=== PATIENT | female | born 1970 | race Caucasian/White ===

== ENCOUNTER → 2017-06-03 | Day surgery (SDC) | payer BC ==
[~2017-06-03] MED LIST: ASPI325T PO; BUPIVACAINE HCL PF 0.75% 30 ML VIAL ONE; EPINEPHrine HCL (1:1000) 30 MG/30 ML VIAL ONE; KETOROLAC TROMETHAMINE 30 MG/ML (IVP) VIAL ONE; LACTATED RINGER'S 1000 ML INJ 1,000 ML ONE; LIDOCAINE 1.5%/EPINEPHrine 1:200,000 PF SOLN 30 ML AMP ONE; MIDAZOLAM HCL 5 MG/5 ML VIAL ONE; ONDANSETRON HCL 4 MG/2 ML VIAL IV PUSH ONE; PROPOFOL 200 MG/20 ML AMP IV ONE; TAB-TAB PO; XARE15TA PO; XARE20TA PO; ceFAZolin INJ 1,000 MG VIAL ONE
--- NOTE | 2017-06-04 08:29 | MP ---
cc: ALEKSANDR HERNANDEZ DATE OF SURGERY: June 03, 2017 PREOPERATIVE DIAGNOSIS Right shoulder rotator cuff tear with impingement with calcific tendonitis. POSTOPERATIVE DIAGNOSIS Right shoulder rotator cuff tear with impingement with calcific tendonitis. SURGEON Dr. Aleksandr Hernandez SEEING EYE DOG TEACHER MELISSA Morin SEEING EYE DOG TEACHER MELISSA Domingo The surgical procedure was assisted by my Advanced Registered Nurse Practitioner. My CABLE ASSEMBLER AND SWAGER presence was necessary throughout this case for the manipulation and positioning of the surgical extremity. My CABLE ASSEMBLER AND SWAGER was assisting me throughout the duration of this procedure. The skill set of an Advance Registered Nurse Practitioner was medically necessary to complete this procedure. During the surgical case, the surgical coordinator was working at the back table and the Advance Registered Nurse Practitioner was directly assisting me. PROCEDURE Right shoulder arthroscopic rotator cuff repair with subacromial decompression and partial acromioplasty. ESTIMATED BLOOD LOSS Minimal. ANESTHESIA Regional and general. PROCEDURE The patient had regional anesthesia administered. She was placed into lateral decubitus position, after general anesthesia was administered, she received intravenous Ancef. She was placed into 12 pounds of in-line traction. The right upper extremity was prepped and draped in usual sterile fashion. We started with standard posterior portal for the diagnostic arthroscopy. We identified glenohumeral joint showing no significant chondromalacia. The biceps tendon was in very good condition. The superior labrum anteriorly and posteriorly was in good condition. There was no loose bodies in the axillary pouch. We identified some partial tearing of the superior aspect of the subscapularis that did not require repair. We identified a 90% thickness supraspinatus tendon tear involving most of the supraspinatus tendon. There was some retraction noted from underneath the cuff. We used spinal needle localization to help determine a lateral portal. We then placed the arthroscope in the subacromial space. There was quite a bit of bursitis. We used our lateral portal to debride the bursitis. There was impingement of the coracoacromial ligament which was resected using an underwater Bovie. We found very small spur which was resected with a forward shaver. We then turned our attention back to the rotator cuff and found the area where the remaining 10% thickness fibers were intact for the supraspinatus tendon. We debrided through this and then easily identified the remaining portion of the torn mildly retracted rotator cuff tear. We debrided the undersurface of the rotator cuff and then we debrided the insertion site of the greater tuberosity using a shaver. We then spent quite a bit of time looking for the calcium deposit on the lateral aspect of the shoulder. Per the x-rays and the MRI this deposit should have been just lateral to the supraspinatus tendon. We probed this and we could not find any significant exophytic mass such as this deposit that treated any unusual anatomy on the lateral aspect of the humerus. We searched by the lateral aspect of the infraspinatus as well. We did elevate the arm and did not see any impingement in this area and therefore we turned our attention back to the rotator cuff tear, repaired this by using two biocomposite swivel locks. The most medial one had a fiber tape associated with it. The very top of the anchor had some mild fragmentation, these fragments were removed. We did later look into the joint to make sure there were no interarticular fragments. The vast majority of the anchor was extremely stable as the bone was very firm. We used each of the fiber tapes to create a horizontal mattress type of stitch and then in the very center of this stitch we placed a fiber link. These three sutures were then taken and placed down laterally into another Arthrex biocomposite suture anchor which had excellent purchase. Overall this gave an excellent repair to the tear, laying down very nicely. We placed the arthroscope into the glenohumeral space again, again confirmed there was no loose bodies and then we were also able to inspect the repair which showed that the repair was now anatomic of the supraspinatus tendon, biceps tendon was intact. The arthroscopic portals were closed with 2-0 Vicryl and 3-0 Nylon. The patient was placed in a sling and swath. Postoperative plan is standard rotator cuff repair protocol. MD VANESSA Rehman/MINA /4:24 PM /8:12 AM
== END | disposition home or self-care (01) ==
LOC: ESDC 12:47
PROVIDERS: ATTEND Orthopaedic Surgery
DX: M75.101 Unspecified rotator cuff tear or rupture of right shoulder, not specified as traumatic (principal); M75.41 Impingement syndrome of right shoulder; M75.31 Calcific tendinitis of right shoulder
CPT/HCPCS: 01630; 01991; 29826; 29827; 64417; C1713; J0171; J0690; J1885; J2250; J2405; J7120

== ENCOUNTER 2017-06-19 06:36 | Emergency (ER) | payer BC ==
[~2017-06-19] VITALS: Ht 160 cm; Wt 114.6 kg
[~2017-06-19 06:36] MED LIST changes: -ASPI325T PO; -BUPIVACAINE HCL PF 0.75% 30 ML VIAL ONE; -EPINEPHrine HCL (1:1000) 30 MG/30 ML VIAL ONE; -KETOROLAC TROMETHAMINE 30 MG/ML (IVP) VIAL ONE; -LACTATED RINGER'S 1000 ML INJ 1,000 ML ONE; -LIDOCAINE 1.5%/EPINEPHrine 1:200,000 PF SOLN 30 ML AMP ONE; -MIDAZOLAM HCL 5 MG/5 ML VIAL ONE; -ONDANSETRON HCL 4 MG/2 ML VIAL IV PUSH ONE; -PROPOFOL 200 MG/20 ML AMP IV ONE; -XARE15TA PO; -XARE20TA PO; -ceFAZolin INJ 1,000 MG VIAL ONE
[2017-06-19 06:43] VITALS: BP 158/85; PULSE 91; RESP 18; TEMP 98.3; O2SAT 98
[2017-06-19] MEDS ORDERED: ASPI325T PO (07:01)
--- NOTE | 2017-06-19 07:09 | PD ---
HPI Chief Complaint: Pain: Acute or Chronic Time Seen by Provider: 06:50 Travel History International Travel<30 days: No Contact w/Intl Traveler<30days: No Traveled to known affect area: No History of Present Illness HPI 46-year-old female complains of right leg pain. Patient states that the pain started yesterday. Patient status post right shoulder rotator cuff surgery 2 weeks ago. Patient has been taking aspirin 325 mg daily. Patient states the pain is sharp pain started at the posterior aspect of the right thigh with radiation down the right leg. Patient denies any fever chills. Patient states that she has mild shortness of breath the past 2 days. Patient denies any chest pain. Patient denies abdominal pain. Patient has history of DVT and PE in the past. Patient was on -control pills at that time. Patient's not on control pills now. Patient denies any recent injury. PFSH Past Medical History Arthritis: Yes (OSTEO CYRUS KNEES) Deep Vein Thrombosis: Yes ?: Not Past Surgical History Section: Yes (X2) Social History Alcohol Use: No Tobacco Use: No Substance Use: No Allergies-Medications (Allergen,Severity, Reaction): Coded Allergies: No Known Allergies (Verified , 06/19/17) Reported Meds & Prescriptions Reported Meds & Active Scripts Active Reported Aspirin 325 Mg Tab 325 Mg PO DAILY Multivitamin (Multivitamins) 1 Tab Tab 1 Tab PO DAILY Review of Systems General / Constitutional: No: Fever Eyes: No: Visual changes HENT: No: Headaches Cardiovascular: No: Chest Pain or Discomfort Respiratory: No: Shortness of Breath Gastrointestinal: No: Abdominal Pain Genitourinary: No: Dysuria Musculoskeletal: Positive: Pain Skin: No Rash Neurologic: No: Weakness Psychiatric: No: Depression Endocrine: No: Polydipsia Hematologic/Lymphatic: No: Easy Bruising Physical Exam Narrative GENERAL: Well-nourished, well-developed patient. SKIN: Focused skin assessment warm/dry. HEAD: Normocephalic. EYES: No scleral icterus. No injection or drainage. NECK: Supple, trachea midline. No JVD or lymphadenopathy. CARDIOVASCULAR: Regular rate and rhythm without murmurs, gallops, or rubs. RESPIRATORY: Breath sounds equal bilaterally. No accessory muscle use. GASTROINTESTINAL: Abdomen soft, non-tender, nondistended. MUSCULOSKELETAL: No cyanosis, or edema. BACK: Nontender without obvious deformity. No CVA tenderness. Patient has mild tenderness on palpation posterior aspect of right thigh. No redness no heat noted. Full range of motion low extremity. Data Data Last Documented VS Vital Signs Date Time Temp Pulse Resp B/P (MAP) Pulse Ox O2 Delivery O2 Flow Rate FiO2 06/19/17 08:38 70 16 152/88 (109) 97 Room Air 06/19/17 06:43 98.3 Orders Orders Complete Blood Count With Diff (06/19/17 07:02) Basic Metabolic Panel (Bmp) (06/19/17 07:02) Prothrombin Time / Inr (Pt) (06/19/17 07:02) Act Partial Throm Time (Ptt) (06/19/17 07:02) Iv Access Insert/Monitor (06/19/17 07:02) Us Leg Venous Doppler (06/19/17 07:02) Labs Laboratory Tests Test 06/19/17 07:15 White Blood Count 6.7 TH/MM3 Red Blood Count 4.61 MIL/MM3 Hemoglobin 13.0 GM/DL Hematocrit 38.8 % Mean Corpuscular Volume 84.2 FL Mean Corpuscular Hemoglobin 28.2 PG Mean Corpuscular Hemoglobin Concent 33.6 % Red Cell Distribution Width 12.7 % Platelet Count 245 TH/MM3 Mean Platelet Volume 7.6 FL Neutrophils (%) (Auto) 66.7 % Lymphocytes (%) (Auto) 23.3 % Monocytes (%) (Auto) 6.3 % Eosinophils (%) (Auto) 3.3 % Basophils (%) (Auto) 0.4 % Neutrophils # (Auto) 4.6 TH/MM3 Lymphocytes # (Auto) 1.5 TH/MM3 Monocytes # (Auto) 0.4 TH/MM3 Eosinophils # (Auto) 0.2 TH/MM3 Basophils # (Auto) 0.0 TH/MM3 CBC Comment DIFF FINAL Differential Comment Prothrombin Time 10.2 SEC Prothromb Time International Ratio 0.9 RATIO Activated Partial Thromboplast Time 25.3 SEC Blood Urea Nitrogen 8 MG/DL Creatinine 0.61 MG/DL Random Glucose 99 MG/DL Calcium Level 8.5 MG/DL Sodium Level 138 MEQ/L Potassium Level 3.8 MEQ/L Chloride Level 104 MEQ/L Carbon Dioxide Level 25.5 MEQ/L Anion Gap 9 MEQ/L Estimat Glomerular Filtration Rate 105 ML/MIN MDM Medical Decision Making Medical Screen Exam Complete: Yes Emergency Medical Condition: Yes Interpretation(s) 7:49 AM. CBC within normal limit. BMP within normal limit. 9:02 AM. Last Impressions Lower Extremity Ultrasound 06/19/17 0702 Signed Impressions: Service Date/Time: May 07:48 - CONCLUSION: Right calf DVT involving the posterior tibial vein Twin Malave MD Differential Diagnosis Differential diagnosis including musculoskeletal, DVT, PE. Narrative Course 46-year-old female with right leg pain. History of DVT and PE in the past. Patient status post right shoulder surgery 2 weeks ago. Xarelto 15 mg by mouth given. Diagnosis Primary Impression: DVT (deep venous thrombosis) Qualified Codes: I82.441 - Acute embolism and thrombosis of right tibial vein Patient Instructions: General Instructions Additional Instructions: Takes Xarelto as directed. Follow-up with personal physician. Bleeding complications advised. Med/Other Pt SpecificInfo: Prescription(s) given Scripts Rivaroxaban (Xarelto) 20 Mg Tab 20 MG PO DAILY for Blood Clot Prevention, #30 TAB 0 Refills Prov: Shaq Tejeda MD 06/19/17 Rivaroxaban (Xarelto) 15 Mg Tab 15 MG PO Q12HR for Blood Clot Prevention, #42 TAB 0 Refills Prov: Shaq Tejeda MD 06/19/17 Disposition: 01 DISCHARGE HOME Condition: Stable Shaq Tejeda MD Jun 19, 2017 07:09
[2017-06-19 07:30] LABS: AUTOMATED NEUTROPHIL # 4.6 TH/MM3 (1.8-7.7); BASOPHIL % 0.4 % (0.0-2.0); EOSINOPHIL # 0.2 TH/MM3 (0-0.4); EOSINOPHIL % 3.3 % (0.0-4.0); HEMATOCRIT 38.8 % (35.0-46.0); HEMO FLAGS DIFF FINAL; LYMPH % 23.3 % (9.0-44.0); LYMPHOCYTE # 1.5 TH/MM3 (1.0-4.8); MEAN CELL VOLUME 84.2 FL (80.0-100.0); MEAN CORPUSCULAR HEMOGLOBIN 28.2 PG (27.0-34.0); MEAN CORPUSCULAR HGB CONC 33.6 % (32.0-36.0); MONO % 6.3 % (0.0-8.0); NEUT % 66.7 % (16.0-70.0); PLATELET COUNT 245 TH/MM3 (150-450); RED BLOOD COUNT 4.61 MIL/MM3 (4.00-5.30); RED CELL DISTRIBUTION WIDTH 12.7 % (11.6-17.2); WHITE BLOOD COUNT 6.7 TH/MM3 (4.0-11.0)
[2017-06-19 07:36] LABS: POTASSIUM 3.8 MEQ/L (3.5-5.1)
[2017-06-19 07:39] LABS: BICARBONATE 25.5 MEQ/L (21.0-32.0)
[2017-06-19 07:40] LABS: APTT (PATIENT) 25.3 SEC (24.3-30.1); INTERNATIONAL NORMALIZED RATIO 0.9 RATIO; PROTHROMBIN TIME - PATIENT 10.2 SEC (9.8-11.6)
[2017-06-19 08:38] VITALS: BP 152/88; PULSE 70; RESP 16; O2SAT 97
--- NOTE | 2017-06-19 08:55 | RADRPT ---
EXAM DATE/TIME: 06/19/2017 07:48 [facility] COMPARISON: No previous studies available for comparison. INDICATIONS : Right leg pain. MEDICAL HISTORY : Deep venous thrombosis. Arthritis. SURGICAL HISTORY : section. Rotator cuff, right. ENCOUNTER: Initial ACUITY: 1 day PAIN SCORE: 3/10 LOCATION: Right leg. TECHNIQUE: Venous ultrasound of the leg was performed from the inguinal ligament to the proximal calf. Real-jacky e, color Doppler and spectral tracing, compression and augmentation techniques were used. FINDINGS: The posterior tibial vein and the right calf is occluded. The deep venous structures are otherwise pa tent. Specifically, the popliteal vein, superficial femoral vein, common femoral vein and visualized iliac vein are patent. CONCLUSION: Right calf DVT involving the posterior tibial vein Twin Malave MD on June 19, 2017 at 8:51 Board Certified Radiologist. This report was verified electronically.
[2017-06-19] MEDS ORDERED: XARE20TA PO (09:10)
[2017-06-19] MEDS ORDERED: XARE15TA PO (09:10)
[2017-06-19] MEDS ORDERED: RIVAROXABAN 15 MG TAB PO ONE (09:15)
== END 2017-06-19 09:26 | disposition home or self-care (01) ==
LOC: PHED 06:36
DX: I82.441 Acute embolism and thrombosis of right tibial vein (principal)
CPT/HCPCS: 80048; 85025; 85610; 85730; 93971; 99284

== ENCOUNTER 2017-07-22 12:11 | Emergency (ER) | payer BC ==
[~2017-07-22] VITALS: Ht 160 cm; Wt 118.2 kg
[~2017-07-22 12:11] MED LIST changes: +ASPI325T PO; +XARE15TA PO; +XARE20TA PO
[2017-07-22 12:17] VITALS: BP 181/82; PULSE 111; RESP 16; TEMP 98.9; O2SAT 99
[2017-07-22 12:30] VITALS: BP 156/73; PULSE 113; RESP 18; O2SAT 97
[2017-07-22] MEDS ORDERED: SODIUM CHLORIDE 0.9% FLUSH 10 ML FLUSH IVF PRN (12:45)
[2017-07-22] MEDS ORDERED: SODIUM CHLOR 0.9% 1000 ML INJ 1,000 ML IV ONE (12:45)
[2017-07-22 13:05] LABS: AUTOMATED NEUTROPHIL # 10.2 TH/MM3 (1.8-7.7); BASOPHIL # 0.1 TH/MM3 (0-0.2); BASOPHIL % 1.3 % (0.0-2.0); EOSINOPHIL # 0.1 TH/MM3 (0-0.4); EOSINOPHIL % 0.5 % (0.0-4.0); HEMATOCRIT 38.1 % (35.0-46.0); HEMO FLAGS DIFF FINAL; LYMPH % 6.4 % (9.0-44.0); LYMPHOCYTE # 0.7 TH/MM3 (1.0-4.8); MEAN CORPUSCULAR HEMOGLOBIN 27.9 PG (27.0-34.0); MEAN CORPUSCULAR HGB CONC 33.6 % (32.0-36.0); MONO % 3.3 % (0.0-8.0); NEUT % 88.5 % (16.0-70.0); PLATELET COUNT 272 TH/MM3 (150-450); RED BLOOD COUNT 4.59 MIL/MM3 (4.00-5.30); WHITE BLOOD COUNT 11.5 TH/MM3 (4.0-11.0)
--- NOTE | 2017-07-22 13:05 | PD ---
HPI Chief Complaint: Respiratory Symptoms Time Seen by Provider: 12:24 Travel History International Travel<30 days: No Contact w/Intl Traveler<30days: No Traveled to known affect area: No History of Present Illness HPI The patient is a 46-year-old female who presents emergency department for shortness of breath. The patient states she has a previous history of pulmonary embolism/DVT approximately 10 years ago when she was on control. The patient was taken off of the control, treated with Coumadin for 1 year, and then taken off of the Coumadin. The patient states she had rotator cuff surgery 6-7 weeks ago and has been mostly immobile, sleeping in a recliner, and less active. The patient then had posterior right leg pain and was seen in the emergency department on June 19 where she had an ultrasound performed which revealed a DVT. The patient was placed on Xarelto at that time. The patient states several family members have been sick recently, she went to work earlier today, and then developed cough and cold symptoms. The patient plays of a sore throat, dizziness, shortness of breath, no dry nonproductive cough. The patient states she had dizziness, shortness of breath , and a dry nonproductive cough with her first pulmonary embolism and is concerned she may be suffering from a pulmonary embolism. She does note fevers high as 100.3 at home yesterday, took Tylenol this morning for her chills. PFSH Past Medical History Hx Anticoagulant Therapy: Yes Arthritis: Yes (OSTEO CYRUS KNEES) Cardiovascular Problems: Yes (HX DVT AND PE) Deep Vein Thrombosis: Yes ?: Not LMP: 07/14/17 Past Surgical History Section: Yes (X2) Social History Alcohol Use: Yes (occas) Tobacco Use: No Substance Use: No Allergies-Medications (Allergen,Severity, Reaction): Coded Allergies: No Known Allergies (Verified , 07/22/17) Reported Meds & Prescriptions Reported Meds & Active Scripts Active Xarelto (Rivaroxaban) 20 Mg Tab 20 Mg PO DAILY Xarelto (Rivaroxaban) 15 Mg Tab 15 Mg PO Q12HR Reported Aspirin 325 Mg Tab 325 Mg PO DAILY Multivitamin (Multivitamins) 1 Tab Tab 1 Tab PO DAILY Review of Systems Except as stated in HPI: all other systems reviewed are Neg General / Constitutional: Positive: Fever, Chills HENT: Positive: Lightheadedness, Sore Throat Cardiovascular: Positive: Dyspnea on exertion, No: Chest Pain or Discomfort Respiratory: Positive: Shortness of Breath, No: Pleuritic Pain Gastrointestinal: No: Nausea, Vomiting, Abdominal Pain Musculoskeletal: Positive: Myalgias Skin: No Rash Neurologic: Positive: Dizziness Physical Exam Narrative GENERAL: Awake, alert, pleasant 46 year-old female who appears her stated age and appears mildly short of breath. SKIN: Focused skin assessment warm/dry. HEAD: Atraumatic. Normocephalic. EYES: Pupils equal and round. No scleral icterus. No injection or drainage. ENT: No nasal bleeding or discharge. Oropharynx reveals minimal erythema, no exudate noted. NECK: Trachea midline. No JVD. CARDIOVASCULAR: Regular, tachycardic with a heart rate of 108. RESPIRATORY: No accessory muscle use. Clear to auscultation. Breath sounds equal bilaterally. GASTROINTESTINAL: Abdomen soft, obese, no rebound tenderness. MUSCULOSKELETAL: No obvious deformities. No clubbing. No cyanosis. No edema. NEUROLOGICAL: Awake and alert. No obvious cranial nerve deficits. Motor grossly within normal limits. Normal speech. PSYCHIATRIC: Appropriate mood and affect; insight and judgment normal. Data Data Last Documented VS Vital Signs Date Time Temp Pulse Resp B/P (MAP) Pulse Ox O2 Delivery O2 Flow Rate FiO2 07/22/17 13:35 106 20 110/73 (85) 97 Room Air 07/22/17 12:17 98.9 Orders Orders Complete Blood Count With Diff (07/22/17 12:43) Comprehensive Metabolic Panel (07/22/17 12:43) B-Type Natriuretic Peptide (07/22/17 12:43) Act Partial Throm Time (Ptt) (07/22/17 12:43) Prothrombin Time / Inr (Pt) (07/22/17 12:43) Magnesium (Mg) (07/22/17 12:43) Ckmb (Isoenzyme) Profile (07/22/17 12:43) Troponin I (07/22/17 12:43) Influenzae A/B Antigen (07/22/17 12:43) Iv Access Insert/Monitor (07/22/17 12:43) Electrocardiogram (07/22/17 12:43) Ecg Monitoring (07/22/17 12:43) Oximetry (07/22/17 12:43) Oxygen Administration (07/22/17 12:43) Chest, Single Ap (07/22/17 12:43) Ct Pulmonary Angiogram (07/22/17 12:43) Sodium Chloride 0.9% Flush (Ns Flush) (07/22/17 12:45) Sodium Chlor 0.9% 1000 Ml Inj (Ns 1000 M (07/22/17 12:45) Ondansetron Inj (Zofran Inj) (07/22/17 13:30) Iohexol 350 Inj (Omnipaque 350 Inj) (07/22/17 14:04) Labs Laboratory Tests Test 07/22/17 12:57 White Blood Count 11.5 TH/MM3 Red Blood Count 4.59 MIL/MM3 Hemoglobin 12.8 GM/DL Hematocrit 38.1 % Mean Corpuscular Volume 83.0 FL Mean Corpuscular Hemoglobin 27.9 PG Mean Corpuscular Hemoglobin Concent 33.6 % Red Cell Distribution Width 12.0 % Platelet Count 272 TH/MM3 Mean Platelet Volume 7.8 FL Neutrophils (%) (Auto) 88.5 % Lymphocytes (%) (Auto) 6.4 % Monocytes (%) (Auto) 3.3 % Eosinophils (%) (Auto) 0.5 % Basophils (%) (Auto) 1.3 % Neutrophils # (Auto) 10.2 TH/MM3 Lymphocytes # (Auto) 0.7 TH/MM3 Monocytes # (Auto) 0.4 TH/MM3 Eosinophils # (Auto) 0.1 TH/MM3 Basophils # (Auto) 0.1 TH/MM3 CBC Comment DIFF FINAL Differential Comment Prothrombin Time 10.7 SEC Prothromb Time International Ratio 1.0 RATIO Activated Partial Thromboplast Time 28.4 SEC Blood Urea Nitrogen 7 MG/DL Creatinine 0.61 MG/DL Random Glucose 76 MG/DL Total Protein 7.6 GM/DL Albumin 3.6 GM/DL Calcium Level 8.9 MG/DL Magnesium Level 2.0 MG/DL Alkaline Phosphatase 113 U/L Aspartate Amino Transf (AST/SGOT) 17 U/L Alanine Aminotransferase (ALT/SGPT) 24 U/L Total Bilirubin 0.5 MG/DL Sodium Level 135 MEQ/L Potassium Level 3.8 MEQ/L Chloride Level 99 MEQ/L Carbon Dioxide Level 29.3 MEQ/L Anion Gap 7 MEQ/L Estimat Glomerular Filtration Rate 105 ML/MIN Total Creatine Kinase 58 U/L Troponin I LESS THAN 0.02 NG/ML B-Type Natriuretic Peptide 15 PG/ML MDM Medical Decision Making Medical Screen Exam Complete: Yes Emergency Medical Condition: Yes Medical Record Reviewed: Yes Interpretation(s) EKG reveals sinus tachycardia with a heart rate of 106. Low QRS voltage precordial leads. Date/Time Source Procedure Growth Status 07/22/17 12:57 Nasal Aspirate Influenza Types A,B Antigen (FRANKIE) - Final NEGATIVE FOR FLU A AND B ANTIGEN.... Complete Chest x-ray reveals minimal right lower lung parenchymal opacities, presumably atelectasis. Laboratory Tests Test 07/22/17 12:57 White Blood Count 11.5 TH/MM3 Red Blood Count 4.59 MIL/MM3 Hemoglobin 12.8 GM/DL Hematocrit 38.1 % Mean Corpuscular Volume 83.0 FL Mean Corpuscular Hemoglobin 27.9 PG Mean Corpuscular Hemoglobin Concent 33.6 % Red Cell Distribution Width 12.0 % Platelet Count 272 TH/MM3 Mean Platelet Volume 7.8 FL Neutrophils (%) (Auto) 88.5 % Lymphocytes (%) (Auto) 6.4 % Monocytes (%) (Auto) 3.3 % Eosinophils (%) (Auto) 0.5 % Basophils (%) (Auto) 1.3 % Neutrophils # (Auto) 10.2 TH/MM3 Lymphocytes # (Auto) 0.7 TH/MM3 Monocytes # (Auto) 0.4 TH/MM3 Eosinophils # (Auto) 0.1 TH/MM3 Basophils # (Auto) 0.1 TH/MM3 CBC Comment DIFF FINAL Differential Comment Prothrombin Time 10.7 SEC Prothromb Time International Ratio 1.0 RATIO Activated Partial Thromboplast Time 28.4 SEC Blood Urea Nitrogen 7 MG/DL Creatinine 0.61 MG/DL Random Glucose 76 MG/DL Total Protein 7.6 GM/DL Albumin 3.6 GM/DL Calcium Level 8.9 MG/DL Magnesium Level 2.0 MG/DL Alkaline Phosphatase 113 U/L Aspartate Amino Transf (AST/SGOT) 17 U/L Alanine Aminotransferase (ALT/SGPT) 24 U/L Total Bilirubin 0.5 MG/DL Sodium Level 135 MEQ/L Potassium Level 3.8 MEQ/L Chloride Level 99 MEQ/L Carbon Dioxide Level 29.3 MEQ/L Anion Gap 7 MEQ/L Estimat Glomerular Filtration Rate 105 ML/MIN Total Creatine Kinase 58 U/L Troponin I LESS THAN 0.02 NG/ML B-Type Natriuretic Peptide 15 PG/ML CT pulmonary angiogram reveals no evidence of pulmonary embolism Differential Diagnosis Differential diagnosis includes URI, viral syndrome, bronchitis, pneumonia, influenza, pulmonary embolism, pleural effusion, acute coronary syndrome, congestive heart failure, failed outpatient therapy. Narrative Course IV was established, labs are drawn and sent, and the patient was placed on cardiac telemetry monitoring and continuous pulse oximetry monitoring. Chest x- ray was obtained. CT pulmonary angiogram was ordered. The patient was administered IV fluids. BNP is 15. Troponin is less than 0.02. Chest x-ray reveals atelectasis. Influenza screen is negative. The patient did have mild nausea, therefore, was administered Zofran [address] pulmonary angiogram is negative for PE. The patient is advised [id number] cough and cold medicines as needed. She will be provided a copy of her CT results and lab results at discharge. She is advised to follow-up with her hold worker in [place], [place], soon as possible. Return if symptoms worsen or progress. Diagnosis Primary Impression: Viral syndrome Additional Impression: Dyspnea Qualified Codes: R06.00 - Dyspnea, unspecified Patient Instructions: General Instructions Additional Instructions: Please provide the patient a copy of her CT results and lab results at discharge. Work excuse for 2 days. Follow-up with her hold worker. Continue Xarelto as previously directed. Return if symptoms worsen or progress. Med/Other Pt SpecificInfo: No Change to Meds Disposition: 01 DISCHARGE HOME Condition: Stable Gatito Jules MD Jul 22, 2017 13:05
[2017-07-22 13:14] LABS: CHLORIDE 99 MEQ/L (98-107); POTASSIUM 3.8 MEQ/L (3.5-5.1); SODIUM (NA) 135 MEQ/L (136-145)
--- NOTE | 2017-07-22 13:17 | RADRPT ---
EXAM DATE/TIME: 07/22/2017 12:54 [facility] COMPARISON: No previous studies available for comparison. INDICATIONS : Short of breath since this morning. MEDICAL HISTORY : Deep venous thrombosis. Arthritis. SURGICAL HISTORY : None. ENCOUNTER: Initial ACUITY: 1 day PAIN SCORE: 0/10 LOCATION: Bilateral chest FINDINGS: Minimal linear parenchymal opacities in the right lower lung zone. Cardiomediastinal contours are wit hin normal limits. Bony thorax is intact. CONCLUSION: 1. Minimal right lower lung zone parenchymal opacities, presumably atelectasis. Ben Herman MD on July 22, 2017 at 13:15 Board Certified Radiologist. This report was verified electronically.
[2017-07-22 13:20] LABS: ANION GAP 7 MEQ/L (5-15); APTT (PATIENT) 28.4 SEC (24.3-30.1); BICARBONATE 29.3 MEQ/L (21.0-32.0); BLOOD UREA NITROGEN 7 MG/DL (7-18); PROTHROMBIN TIME - PATIENT 10.7 SEC (9.8-11.6)
[2017-07-22 13:23] LABS: ALT (GPT) 24 U/L (10-53); AST (GOT) 17 U/L (15-37); GLOMERULAR FILTRATION RATE 105 ML/MIN (>89)
[2017-07-22 13:24] LABS: TOTAL BILIRUBIN ADULT 0.5 MG/DL (0.2-1.0)
[2017-07-22 13:26] LABS: ALKALINE PHOSPHATASE 113 U/L (45-117); CREATINE KINASE 58 U/L (26-192)
[2017-07-22] MEDS ORDERED: ONDANSETRON HCL 4 MG/2 ML VIAL IV PUSH ONE (13:30)
[2017-07-22 13:35] VITALS: BP 110/73; PULSE 106; RESP 20; O2SAT 97
[2017-07-22] MEDS ORDERED: IOHEXOL 350 MG/ML 10 ML VIAL (for RAD DIAG) IVCONTRAST ONE (14:04)
--- NOTE | 2017-07-22 14:14 | RADRPT ---
EXAM DATE/TIME: 07/22/2017 13:56 [facility] COMPARISON: No previous studies available for comparison. INDICATIONS : Dizziness and shortness of breath. Evaluate for embolism. IV CONTRAST: 65 cc Omnipaque 350 (iohexol) IV RADIATION DOSE: 20.41 CTDIvol (mGy) MEDICAL HISTORY : Deep venous thrombosis. Pulmonary embolism. Anticoagulant therapy. SURGICAL HISTORY : section. ENCOUNTER: Initial ACUITY: 1 day PAIN SCALE: 0/10 LOCATION: chest TECHNIQUE: Volumetric scanning of the chest was performed using a pulmonary embolism protocol MIP images were re constructed. Using automated exposure control and adjustment of the mA and/or kV according to patien t size, radiation dose was kept as low as reasonably achievable to obtain optimal diagnostic quality images. DICOM format image data is available electronically for review and comparison. Follow-up recommendations for detected pulmonary nodules are based at a minimum on nodule size and pa tient risk factors according to Fleischner Society Guidelines. FINDINGS: Examination of the pulmonary vasculature demonstrates good filling of the main, lobar and segmental b ranches. There are no filling defects to suggest pulmonary embolism. Multiplanar reconstructions are also unremarkable. Examination of the lung garcia demonstrates no evidence of pulmonary nodule. No pleural fluid is iden tified. Examination of the mediastinum demonstrates no abnormally enlarged lymph nodes by CT criteria . No axillary or hilar abnormalities are identified. Coronary artery calcifications are present. The visualized upper abdomen demonstrates no abnormality. CONCLUSION: 1. No evidence of pulmonary embolism. Eh Garcia MD on July 22, 2017 at 14:11 Board Certified Radiologist. This report was verified electronically.
--- NOTE | 2017-07-23 14:29 | EKG ---
Date Performed: 07/22/2017 Time Performed: 13:00:45 PTAGE: 46 years EKG: SINUS TACHYCARDIA POSSIBLE LEFT ATRIAL ENLARGEMENT LOW QRS VOLTAGE IN PRECORDIAL LEADS ABNO RMAL RHYTHM ECG NO PREVIOUS TRACING DOCTOR: Ministerio Davison Interpretating Date/Time 07/23/2017 14:29:16
== END 2017-07-22 14:56 | disposition home or self-care (01) ==
LOC: PHED 12:11
DX: B34.9 Viral infection, unspecified (principal); R06.00 Dyspnea, unspecified; Z86.711 Personal history of pulmonary embolism; Z86.718 Personal history of other venous thrombosis and embolism; Z79.01 Long term (current) use of anticoagulants
CPT/HCPCS: 71010; 71275; 80053; 82550; 83735; 83880; 84484; 85025; 85610; 85730; 87804; 93005; 96361; 96374; 99285; J2405; J7030; Q9967